=== PATIENT | female | born 1995 | race Caucasian/White ===

== ENCOUNTER 2019-05-26 07:25 | Inpatient (IN) | payer BC ==
[~2019-05-26] VITALS: Ht 172.7 cm; Wt 80.0 kg
[2019-05-27] VITALS (54 sets, daily range): BP systolic 89–145; BP diastolic 59–93; PULSE 71–130; TEMP 97.7–98.9
--- NOTE | 2019-05-27 08:05 | NUR ---
at patient bedside, discuss plan of care for the day, patient agreeable, SVE completed and AROM with clear fluids noted. Patient tolerated well. Will continue to monitor
[2019-05-27 08:22] LABS: BASO # 0.1 (0.0-0.2); BASO % 0.4 % (0.0-2.0); EOS # 0.1 (0.0-0.7); EOS % 0.5 % (0-4.0); GRAN % 74.8 % (42.2-75.2); HEMATOCRIT 38.2 % (37.0-47.0); HEMOGLOBIN 13.4 g/dl (12.5-16.0); LYMPH # 2.4 (1.2-3.4); LYMPH % 17.7 % (20.0-51.0); MEAN CELL VOLUME 92 fl (80.0-100.0); MEAN CORPUSCULAR HEMOGLOBIN 32 pg (27.0-31.0); MEAN CORPUSCULAR HGB CONC 35 g/dl (33.0-37.0); MONO # 0.8 (0.1-0.6); MONO % 5.8 % (1.7-9.3); PLATELET COUNT 201 K/mm3 (130-400); RED BLOOD COUNT 4.14 M/mm3 (4.10-5.30); REDCELL DISTRIBUTION WIDTH-CV 12.3 % (11.5-14.5)
--- NOTE | 2019-05-27 11:15 | NUR ---
Patient requests epidural at this time, Guillermo Miles [employer]LEBRITY [employer]F [employer]NTRE[employer]UR [employer] PERSONAL[employer] notified of patient request.
--- NOTE | 2019-05-27 11:30 | NUR ---
Guillermo Miles CRNA, into room for placement of epidural. Patient up to edge of bed, questions encouraged and answered. Patient into position. 1149- Test dose given at this time, patient tolerated wel. 1154- patient placed into wedge left. will conitnue to monitor
--- NOTE | 2019-05-27 14:26 | NUR ---
Physician reviews FHR strip
--- NOTE | 2019-05-27 15:30 | NUR ---
reviews FHR strip, Reviews plan of care with patient, agreeable to care, increase pitocin to max of 30. Notify if changes.
--- NOTE | 2019-05-27 17:00 | NUR ---
at patient bedside reviews FHR strip, LUCY complted patient tolerated well. Continue with plan of care. Patient agreeable
--- NOTE | 2019-05-27 17:30 | NUR ---
Nurse at patient bedside, patient states she feels not numb anymore, stating it is more pain. Guillermo Miles ISSUING OPERATOR notified and will be over to assess. assess patient via SVE and noted to be 8cm. Patient tolerated but noted with much more discomfort. 1740- ISSUING OPERATOR at patient bedside, evaluated and determined need for new placement of epidural. Patient agreeable. Patient laid on right lateral side into place with monitors for epidural. 175- Test dose given at this time. pAtient tolerated well. updated on current status
--- NOTE | 2019-05-27 19:02 | NUR ---
1839- DR. GOMES AT BEDSIDE AT THIS TIME. SVE 10CM/+1. 1842- PATIENT PLACED IN LITHOTOMY AND INSTRUCTED ON PUSHING AT THIS TIME. DR. GOMES REMAINS AT BEDSIDE WHILE PUSHING. 1901- SPONTANEOUS DELVIERY OF VIABLE FEMALE AT THIS TIME. 1903- SPONTANEOUS DELIVERY OF INTACT PLACENTA, PITOCIN INFUSING AT A RATE OF 333CC/HR AT THIS TIME. NO COMPLICATIONS. FUNDUS F/U/SCANT. 1904- SECOND DEGREE REPAIRED PER DR. GOMES. INFANT TAKEN TO WARMER FOR WEIGHT PATIENT DESIRED. 1906- INFANT 8 POUNDS. DRIED AND STIMULATED. PINK AND CRYING. 1911- APGARS 8,9,9 D.TECH, RN A THIS TIME. 1914- PATIENT IN RECOVERY
[2019-05-27] MEDS ORDERED: PRENATAL 191 TAB PO (20:39)
[2019-05-28 01:40] VITALS: BP 120/76; PULSE 88; TEMP 98.1
[2019-05-28 07:55] VITALS: BP 126/88; PULSE 89; TEMP 97.8
--- NOTE | 2019-05-28 09:48 | NUR ---
Initial visit; Patient resting, Utility Locate Technician left card of congratulations for the of her daughter and information regarding the availability of spiritual care at [place].
[2019-05-28] MEDS ORDERED: MOTRIN 800800 MG/TAB PO (11:32)
[2019-05-28 16:16] VITALS: BP 114/78; PULSE 76; TEMP 98
[2019-05-28 20:30] VITALS: BP 122/73; PULSE 83; TEMP 99.4
[2019-05-29 08:54] VITALS: BP 113/65; PULSE 87; TEMP 98.4
== END 2019-05-29 15:00 | disposition home or self-care (01) | DRG 807 ==
LOC: LDR 05-27 07:11 → OB 05-27 07:24
PROVIDERS: ADMIT Obstetrics & Gynecology
PROC: 10E0XZZ Delivery of Products of Conception, External Approach (ICD-10-PCS; principal; 2019-05-27)
PROC: 0KQM0ZZ Repair Perineum Muscle, Open Approach (ICD-10-PCS; 2019-05-27)
PROC: 3E033VJ Introduction of Other Hormone into Peripheral Vein, Percutaneous Approach (ICD-10-PCS; 2019-05-27)
PROC: 10907ZC Drainage of Amniotic Fluid, Therapeutic from Products of Conception, Via Natural or Artificial Opening (ICD-10-PCS; 2019-05-27)
DX: O76 Abnormality in fetal heart rate and rhythm complicating labor and delivery (principal); Z37.0 Single live birth; Z3A.39 39 weeks gestation of pregnancy; O99.62 Diseases of the digestive system complicating childbirth; K21.9 Gastro-esophageal reflux disease without esophagitis; O70.1 Second degree perineal laceration during delivery
CPT/HCPCS: J2590; J7120

== ENCOUNTER 2023-04-28 18:59 | Inpatient (IN) | payer BC ==
[~2023-04-28] VITALS: Ht 172.7 cm; Wt 80.9 kg
[2023-04-28] VITALS (9 sets, daily range): BP systolic 102–133; BP diastolic 57–84; PULSE 75–121; TEMP 98.6
[~2023-04-28 18:59] MED LIST: MOTRIN 800800 MG/TAB PO; PRENATAL 191 TAB PO
--- NOTE | 2023-04-28 19:05 | NUR ---
1904- PATIENT AMBULATORY TO UNIT WITH SIGNIFICANT OTHER. DENIES LEAKING OF FLUID AND VAGINAL BLEEDING. STATES SHE HAS HAD AN INCREASE IN PELVIC PRESSURE AND FEELS LIKE SHE MIGHT BE HAVING CONTRACTIONS EVERY 2-3 MINUTES BUT CAN'T FEEL THEM VERY WELL. PATIENT CHANGED INTO HOSPITAL [facility]. SVE -/-2.
--- NOTE | 2023-04-28 21:00 | NUR ---
2100- blood sugar 82.
[2023-04-28 21:17] LABS: BASO # 0.1 K/mm3 (0.0-0.2); BASO % 0.5 % (0.0-2.0); EOS # 0.1 K/mm3 (0.0-0.7); EOS % 0.6 % (0.0-4.0); GRAN # 7.7 K/mm3 (1.4-6.5); GRAN % 72.1 % (42.2-75.2); HEMATOCRIT 38.1 % (37.0-47.0); HEMOGLOBIN 13.3 g/dl (12.5-16.0); LYMPH # 2.1 K/mm3 (1.2-3.4); MEAN CELL VOLUME 93 fl (80.0-100.0); MEAN CORPUSCULAR HEMOGLOBIN 33 pg (27-31); MEAN CORPUSCULAR HGB CONC 35 g/dl (33.0-37.0); MEAN PLATELET VOLUME 12.4 fl (7.4-10.4); MONO # 0.7 K/mm3 (0.1-0.6); MONO % 6.4 % (1.7-9.3); PLATELET COUNT 179 K/mm3 (130-400); RED BLOOD COUNT 4.09 M/mm3 (4.10-5.30); REDCELL DISTRIBUTION WIDTH-CV 12.3 % (11.5-14.5)
[2023-04-28] MEDS ORDERED: LEXAPRO 10MG10 MG PO (22:56)
[2023-04-28] MEDS ORDERED: PRENATAL TABLET PO (22:57)
[2023-04-29] VITALS (52 sets, daily range): BP systolic 93–137; BP diastolic 50–83; PULSE 61–99; TEMP 97.6–98.5
--- NOTE | 2023-04-29 01:02 | NUR ---
0034- KALLIE OSCAR NOTIFIED OF PATIENT REQUESTING EPIDURAL. 0050- PATIENT ASSISTED TO SIDE OF BED. DIFFICULTY TRACING HEART RATE DUE TO MATERNAL POSITION. 0552- CELESTINA ARREGUIN EXPLAINS PROCEDURE AND RISK OF EPIDURAL. PULSE OX APPLIED. 0102- TEST DOSE ADMINISTERED BY CELESTINA ARREGUIN. SEE ANESTHESIA RECORDS. 0109- PATIENT REPOSITIONED IN RIGHT WEDGE. PLAN OF CARE AND SAFETY PRECAUTIONS EXPLAINED TO PATIENT AND FAMILY.
--- NOTE | 2023-04-29 08:30 | NUR ---
0817 DR GOMES BEDSIDE.SVE /-2.AROM PERFORMED WITH CLEAR FLUID RETURNED.PT TOLERATED PROCEDURE WELL.
--- NOTE | 2023-04-29 11:36 | NUR ---
1030 THIS RN BEDSIDE.PT COMPLETE.DR GOMES NOTIFIED.ALL APROPRIATE STAFF NOTIFIED. 1043 SUPRAPUBIC PRESSURE APPLIED DUE TO 10 SECOND SHOULDER DYSTOCIA. 1045 OF VIABLE MALE INFANT.CORD CLAMPED AND CUT BY DR GOMES. PLACED ON WARMER TO BE CLEANED AND DIAPERED AND PLACED ON MATERNAL ABDOMEN.SIOMARA JIANG,RN ASSUMES CARE OF INFANT AT THIS TIME. 1048 OF INTACT PLACENTA. PITOCIN INFUSING PER PROTOCOL. LOCHIA WIHTIN NORMAL LIMITS.FUNDUS FIRM WITH MASSAGE.MATERNAL VITAL SIGNS STABLE.
[2023-04-29] MEDS ORDERED: MOTRIN 800800 MG/TAB PO (21:50)
[2023-04-30] VITALS: BP 107/63; PULSE 60; TEMP 97.8
[2023-04-30 07:45] VITALS: BP 117/70; PULSE 65; TEMP 98.1
--- NOTE | 2023-04-30 10:09 | NUR ---
Initial visit; Parents thanked Optimization Specialist for offering congratulations and God's blessings for the of their son. Optimization Specialist thanked family for choosing [place].
== END 2023-04-30 13:40 | disposition home or self-care (01) | DRG 807 ==
LOC: LDRO 18:59 → LDR 20:34 → OB 04-29 13:00
PROVIDERS: ADMIT Obstetrics & Gynecology
PROC: 10E0XZZ Delivery of Products of Conception, External Approach (ICD-10-PCS; principal; 2023-04-29)
DX: O24.420 Gestational diabetes mellitus in childbirth, diet controlled (principal); Z37.0 Single live birth; O99.344 Other mental disorders complicating childbirth; F41.9 Anxiety disorder, unspecified; Z3A.37 37 weeks gestation of pregnancy; O66.0 Obstructed labor due to shoulder dystocia; O36.63X0 Maternal care for excessive fetal growth, third trimester, not applicable or unspecified; O76 Abnormality in fetal heart rate and rhythm complicating labor and delivery
CPT/HCPCS: J2405; J2590; J2795; J7120